=== PATIENT | male | born 1965 | race Caucasian/White ===

== ENCOUNTER → 2022-09-02 | Outpatient (REF) | payer OTHER ==
[2022-09-02 16:40] LABS: HEMATOCRIT 50.6 % (42.0-52.0); HEMOGLOBIN 16.4 g/dl (13.5-17.5); MEAN CORPUSCULAR HEMOGLOBIN 30.4 pg (27.0-33.0); MEAN CORPUSCULAR HGB CONC 32.4 g/dl (32.0-36.5); MEAN CORPUSCULAR VOLUME 93.9 fl (80.0-96.0); PLATELET COUNT, AUTOMATED 342 10^3/uL (150-450); RED BLOOD COUNT 5.39 10^6/uL (4.30-6.10); WHITE BLOOD COUNT 5.5 10^3/uL (4.0-10.0)
[2022-09-02 17:07] LABS: CREATININE, URINE 43.6 MG/DL; MAU/CREAT RATIO 38.9 MCG/MG (0.0-30.0)
[2022-09-02 17:11] LABS: ALKALINE PHOSPHATASE 105 U/L (46-116); ALT/SGPT 45 U/L (7.0-40); AST/SGOT 28 U/L (<34); BILIRUBIN,TOTAL 0.6 MG/DL (0.3-1.2); BLOOD UREA NITROGEN 12 MG/DL (9-23); CALCIUM LEVEL 9.3 MG/DL (8.5-10.1); CARBON DIOXIDE LEVEL 30 MMOL/L (20-31); CHLORIDE LEVEL 108 MMOL/L (98-107); CHOLESTEROL LEVEL 101 MG/DL (<200); CREATININE FOR GFR 0.79 MG/DL (0.70-1.30); GLOMERULAR FILTRATION RATE > 60.0 (>56); GLUCOSE, FASTING 59 MG/DL (60-100); HDL CHOLESTEROL 29.7 MG/DL (>40); LDL CHOLESTEROL 57.5 MG/DL (<100); NON-HDL-C 71 MG/DL; POTASSIUM SERUM 5.3 MMOL/L (3.5-5.1); SODIUM LEVEL 144 MMOL/L (136-145); THYROID STIMULATING HORMONE 1.081 uIU/ML (0.55-4.78); TOTAL PROTEIN 7.1 G/DL (5.7-8.2); TRIGLYCERIDES LEVEL 69 MG/DL (<150)
[2022-09-02 17:12] LABS: FREE T4 1.49 NG/DL (0.89-1.76); TESTOSTERONE 341 NG/DL (241-827)
[2022-09-02 17:37] LABS: HIV 1&2 SCREEN CENTAUR NEGATIVE (NEGATIVE)
== END ==
LOC: M LAB REF 16:18
PROVIDERS: ATTEND Physician Assistant
DX: Z11.4 Encounter for screening for human immunodeficiency virus [HIV] (principal); F52.21 Male erectile disorder; E03.9 Hypothyroidism, unspecified; E11.9 Type 2 diabetes mellitus without complications; E78.00 Pure hypercholesterolemia, unspecified; Z11.59 Encounter for screening for other viral diseases

== ENCOUNTER → 2022-10-05 | Outpatient (REF) | payer OTHER | LOC: M LAB REF 16:20 | PROVIDERS: ATTEND Physician Assistant | DX: E87.5 Hyperkalemia (principal) ==

== ENCOUNTER → 2023-02-17 | Outpatient (REF) | payer OTHER ==
[2023-02-17 17:06] LABS: BLOOD UREA NITROGEN 14 MG/DL (9-23); CALCIUM LEVEL 9.1 MG/DL (8.5-10.1); CARBON DIOXIDE LEVEL 27 MMOL/L (20-31); CHLORIDE LEVEL 103 MMOL/L (98-107); CREATININE FOR GFR 0.71 MG/DL (0.70-1.30); GLOMERULAR FILTRATION RATE > 60.0 (>56); GLUCOSE, FASTING 106 MG/DL (60-100); POTASSIUM SERUM 4.7 MMOL/L (3.5-5.1); SODIUM LEVEL 140 MMOL/L (136-145)
[2023-02-17 18:43] LABS: HEMOGLOBIN A1c 7.4 % (4.0-6.0)
== END ==
LOC: M LAB REF 16:18
PROVIDERS: ATTEND Physician Assistant
DX: E11.9 Type 2 diabetes mellitus without complications (principal); I10 Essential (primary) hypertension

== ENCOUNTER → 2023-05-15 | Outpatient (CLI) | payer MEDICAID ==
[~2023-05-15] MED LIST: LEVO1TAB40 PO; NEBU1EAC78 MC; PRED20TA PO
[2023-05-15 13:06] LABS: BLOOD UREA NITROGEN 18 MG/DL (9-23); CALCIUM LEVEL 9.3 MG/DL (8.5-10.1); CARBON DIOXIDE LEVEL 30 MMOL/L (20-31); CHLORIDE LEVEL 101 MMOL/L (98-107); CHOLESTEROL LEVEL 112 MG/DL (<200); CHOLESTEROL RISK RATIO 3.38 (<5); CREATININE FOR GFR 0.79 MG/DL (0.70-1.30); GLOMERULAR FILTRATION RATE > 60.0 (>56); GLUCOSE, FASTING 170 MG/DL (60-100); HDL CHOLESTEROL 33.1 MG/DL (>40); LDL CHOLESTEROL 56.9 MG/DL (<100); NON-HDL-C 78.9 MG/DL; POTASSIUM SERUM 4.3 MMOL/L (3.5-5.1); SODIUM LEVEL 138 MMOL/L (136-145); THYROID STIMULATING HORMONE 2.314 uIU/ML (0.55-4.78); TRIGLYCERIDES LEVEL 110 MG/DL (<150)
== END ==
LOC: M WUC 08:51
PROVIDERS: ATTEND Physician Assistant
DX: E03.9 Hypothyroidism, unspecified (principal); E11.9 Type 2 diabetes mellitus without complications

== ENCOUNTER → 2023-09-05 | Outpatient (REF) | payer OTHER ==
[2023-09-05 16:57] LABS: CREATININE, URINE 39.5 MG/DL; MAU/CREAT RATIO 12.6 MCG/MG (0.0-30.0)
== END ==
LOC: M LAB REF 16:03
PROVIDERS: ATTEND Physician Assistant
DX: E11.9 Type 2 diabetes mellitus without complications (principal)

== ENCOUNTER → 2023-10-16 | Outpatient (CLI) | payer OTHER | LOC: M CARPUL 09:43 | PROVIDERS: ATTEND Physician Assistant | DX: R06.2 Wheezing (principal); R05.3 Chronic cough; F17.211 Nicotine dependence, cigarettes, in remission ==

== ENCOUNTER 2023-11-04 12:54 | Inpatient (IN) | payer OTHER ==
[~2023-11-04] VITALS: Ht 162.6 cm; Wt 82.9 kg
[2023-11-04] VITALS (16 sets, daily range): BP systolic 78–108; BP diastolic 50–64; TEMP 96.4–98.1; O2SAT 86–96
[2023-11-04 14:02] LABS: BASO % 0.2 % (0.0-1.0); HEMATOCRIT 45.8 % (42.0-52.0); HEMOGLOBIN 15.6 g/dl (13.5-17.5); LYMPH # 0.8 10^3/uL (1.5-5.0); LYMPH % 4.2 % (24.0-44.0); MEAN CORPUSCULAR HEMOGLOBIN 30.7 pg (27.0-33.0); MEAN CORPUSCULAR HGB CONC 34.1 g/dl (32.0-36.5); MEAN CORPUSCULAR VOLUME 90.2 fl (80.0-96.0); MONO # 2.5 10^3/uL (0.0-0.8); MONO % 13.6 % (2.0-8.0); NEUTROPHILS # 15.1 10^3/uL (1.5-8.5); PLATELET COUNT, AUTOMATED 339 10^3/uL (150-450); RED BLOOD COUNT 5.08 10^6/uL (4.30-6.10); WHITE BLOOD COUNT 18.6 10^3/uL (4.0-10.0)
[2023-11-04] MEDS: NS 1,000 ML IV ONE ×4 (14:02→18:10)
[2023-11-04] MEDS: ONDANSETRON 4MG 2ML VIAL IV ONE (14:02)
[2023-11-04] MEDS: KETOROLAC 30 MG/ML 1ML VIAL IV ONE (14:02)
[2023-11-04] MEDS ORDERED: SEMA1PEN2 SC (14:23)
[2023-11-04] MEDS ORDERED: FARX1TAB3 PO (14:23)
[2023-11-04] MEDS ORDERED: LEVO150T7 PO (14:23)
[2023-11-04] MEDS ORDERED: METO1TAB32 PO (14:23)
[2023-11-04] MEDS ORDERED: ATOR80TA59 PO (14:23)
[2023-11-04] MEDS ORDERED: GLIP10TA18 PO (14:23)
[2023-11-04] MEDS ORDERED: CETI-24 PO (14:23)
[2023-11-04] MEDS ORDERED: ERGO500029 PO (14:23)
[2023-11-04] MEDS ORDERED: NOXI1TAB PO (14:23)
[2023-11-04] MEDS ORDERED: ASPI-226 PO (14:23)
[2023-11-04] MEDS ORDERED: LISI2.5T9 PO (14:23)
[2023-11-04] MEDS ORDERED: METF-415 PO (14:23)
[2023-11-04] MEDS ORDERED: SILD50TA2 PO (14:26)
[2023-11-04] MEDS ORDERED: TAMS1CAP17 PO (14:26)
[2023-11-04 14:31] LABS: ALBUMIN 3.3 G/DL (3.2-5.2); ALKALINE PHOSPHATASE 107 U/L (46-116); ALT/SGPT 23 U/L (7.0-40); AST/SGOT 14 U/L (<34); BILIRUBIN,TOTAL 1.5 MG/DL (0.3-1.2); BLOOD UREA NITROGEN 29 MG/DL (9-23); CALCIUM LEVEL 9.3 MG/DL (8.5-10.1); CARBON DIOXIDE LEVEL 20 MMOL/L (20-31); CHLORIDE LEVEL 99 MMOL/L (98-107); CREATININE FOR GFR 1.08 MG/DL (0.70-1.30); GLOMERULAR FILTRATION RATE > 60.0 (>56); GLUCOSE, FASTING 165 MG/DL (60-100); POTASSIUM SERUM 3.8 MMOL/L (3.5-5.1); SODIUM LEVEL 134 MMOL/L (136-145)
[2023-11-04] MEDS ORDERED: cefTRIAXone SOD 1 GM in D5W MINI-BAG PLUS 50 ML IV ONE ×2 (15:10→15:30)
[2023-11-04] MEDS ORDERED: ACETAMINOPHEN TAB 650MG DOSE (2X325MG) PO PRN (15:20)
[2023-11-04] MEDS ORDERED: ONDANSETRON 4MG 2ML VIAL IV PRN (15:25)
[2023-11-04] MEDS: AZITHROMYCIN INJ 500 MG, VIAL MATE ADAPTER 1 EACH in NS 250 ML IV ONE (15:26)
[2023-11-04] MEDS: ACETAMINOPHEN 500 MG TAB PO ONE (15:27)
[2023-11-04] MEDS ORDERED: AZEL1SPR3 NARES (15:47)
[2023-11-04] MEDS ORDERED: LORA-1041 PO (15:47)
[2023-11-04] MEDS ORDERED: VITA200048 PO (15:47)
[2023-11-04] MEDS ORDERED: ALBU8.5H INH (15:47)
[2023-11-04] MEDS ORDERED: LEVALBUTEROL 1.25MG 0.5ML CONCENTRATE NEB INH PRN (15:50)
[2023-11-04] MEDS ORDERED: HOME MED LIST COMPLETE! XX SCH (15:50)
[2023-11-04] MEDS ORDERED: IPRATROPIUM 0.02% SOLN 0.5MG 2.5ML NEB INH PRN (15:50)
[2023-11-04 15:56] LABS: PROCALCITONIN 5.12 ng/ml
[2023-11-04] MEDS ORDERED: GLUCOSE 4GM CHEW TABLET PO PRN (16:00)
[2023-11-04] MEDS ORDERED: GLUCAGON INJ 1MG VIAL SC PRN (16:00)
[2023-11-04] MEDS ORDERED: DEXTROSE 50% 50ML SYRINGE IV PRN (16:00)
[2023-11-04] MEDS: CETIRIZINE (ZyrTEC) 10 MG TAB PO ONE (16:02)
[2023-11-04] MEDS: guaiFENesin ER TABLET 600 MG TAB PO ONE (16:02)
[2023-11-04] MEDS: MONTELUKAST 10 MG TAB PO ONE (16:02)
[2023-11-04 16:41] LABS: HEMOGLOBIN A1c 6.2 % (4.0-6.0)
[2023-11-04] MEDS ORDERED: LORazepam 2 MG TAB PO PRN (16:45)
[2023-11-04] MEDS: MIDODRINE 5 MG TAB PO ONE (16:59)
[2023-11-04] MEDS: cefTRIAXone SOD 2 GM in D5W MINI-BAG PLUS 50 ML IV ONE (17:01)
[2023-11-04] MEDS: methylPREDNISolone 125MG 2ML VIAL IV ONE (17:06)
[2023-11-04] MEDS: ENOXAPARIN 40MG/0.4ML SYRINGE (J1650 PER 10MG) SC ONE (17:20)
[2023-11-04] MEDS: THIAMINE 100 MG TAB PO SCH (17:20)
[2023-11-04] MEDS ORDERED: NOREPINEPHRINE 4MG IN D5 250ML 4 MG in IV 1 EA IV SCH (17:35)
[2023-11-04] MEDS: PIPERACILLIN/TAZOBACTAM SOD 4.5 GM in D5W MINI-BAG PLUS 50 ML IV SCH (17:53)
[2023-11-04] MEDS: HYDROCORTISONE 100MG/2ML VIAL IV ONE (17:58)
[2023-11-04] MEDS ORDERED: HYDROCORTISONE 100MG/2ML VIAL IV SCH (18:00)
[2023-11-04] MEDS: INSULIN LISPRO (NovoLOG) PER UNIT SC SCH ×2 (18:44→20:02)
[2023-11-04] MEDS: IPRATROPIUM 0.02% SOLN 0.5MG 2.5ML NEB INH SCH (19:12)
[2023-11-04] MEDS: LEVALBUTEROL 1.25MG 0.5ML CONCENTRATE NEB INH SCH (19:12)
[2023-11-04] MEDS: NS 1,000 ML IV SCH (19:20)
[2023-11-04] MEDS: LEVEMIR (INSULIN DETEMIR) 1 UNITS/0.01ML SC SCH (20:08)
[2023-11-04] MEDS: OXYMETAZOLINE 0.05% NASAL SPRAY (AFRIN) SCH (20:08)
[2023-11-04] MEDS: guaiFENesin ER TABLET 600 MG TAB PO SCH (20:08)
[2023-11-05] VITALS (30 sets, daily range): BP systolic 104–133; BP diastolic 54–74; TEMP 97–99.4; O2SAT 88–95
[2023-11-05 04:59] LABS: HEMATOCRIT 42.6 % (42.0-52.0); HEMOGLOBIN 13.8 g/dl (13.5-17.5); MEAN CORPUSCULAR HEMOGLOBIN 30.2 pg (27.0-33.0); MEAN CORPUSCULAR HGB CONC 32.4 g/dl (32.0-36.5); MEAN CORPUSCULAR VOLUME 93.2 fl (80.0-96.0); PLATELET COUNT, AUTOMATED 330 10^3/uL (150-450); RED BLOOD COUNT 4.57 10^6/uL (4.30-6.10)
[2023-11-05 05:25] LABS: BLOOD UREA NITROGEN 25 MG/DL (9-23); CALCIUM LEVEL 8.5 MG/DL (8.5-10.1); CARBON DIOXIDE LEVEL 23 MMOL/L (20-31); CHLORIDE LEVEL 108 MMOL/L (98-107); CHOLESTEROL LEVEL 59 MG/DL (<200); CHOLESTEROL RISK RATIO 2.14 (<5); CREATININE FOR GFR 0.79 MG/DL (0.70-1.30); GLOMERULAR FILTRATION RATE > 60.0 (>56); GLUCOSE, FASTING 164 MG/DL (60-100); HDL CHOLESTEROL 27.5 MG/DL (>40); LDL CHOLESTEROL 23.5 MG/DL (<100); NON-HDL-C 31.5 MG/DL; POTASSIUM SERUM 4.2 MMOL/L (3.5-5.1); SODIUM LEVEL 139 MMOL/L (136-145); TRIGLYCERIDES LEVEL 40 MG/DL (<150)
[2023-11-05 05:26] LABS: THYROID STIMULATING HORMONE 0.235 uIU/ML (0.55-4.78)
[2023-11-05 05:38] LABS: LYMPHOCYTES 3 % (16-44); MONOCYTES 8 % (0-5); NEUTROPHILS 84 % (28-66)
[2023-11-05 05:39] LABS: PLATELET ESTIMATE NORMAL (NORMAL)
[2023-11-05] MEDS: methylPREDNISolone 40MG 1ML VIAL IV SCH (05:45)
[2023-11-05] MEDS: LEVOTHYROXINE 150MCG TABLET (0.15MG) PO SCH (05:45)
[2023-11-05] MEDS: MIDODRINE 5 MG TAB PO SCH (08:00)
[2023-11-05] MEDS: MONTELUKAST 10 MG TAB PO SCH (08:41)
[2023-11-05] MEDS: AZITHROMYCIN 250MG TABLET PO SCH (08:41)
[2023-11-05] MEDS: ASPIRIN 81MG ENTERIC TABLET PO SCH (08:41)
[2023-11-05] MEDS: DAPAGLIFLOZIN PROPANEDIOL 10MG TABLET (FARXIGA) PO SCH (08:41)
[2023-11-05] MEDS: ATORVASTATIN 20 MG TAB PO SCH (08:41)
[2023-11-05] MEDS: CETIRIZINE (ZyrTEC) 10 MG TAB PO SCH (08:42)
[2023-11-05] MEDS: MULTIVITAMINS/MINERALS THERAP 1 TAB PO SCH (08:42)
[2023-11-05] MEDS: LORATADINE 10 MG TAB PO SCH (08:42)
[2023-11-05] MEDS: FOLIC ACID 1MG TAB PO SCH (08:42)
[2023-11-05] MEDS ORDERED: TAMSULOSIN 0.4 MG CAP PO SCH (09:00)
[2023-11-05] MEDS ORDERED: METOPROLOL SUCC *XL* 25MG TAB (TopROL *XL*) PO SCH (09:00)
[2023-11-05] MEDS: ACETAMINOPHEN TAB 650MG DOSE (2X325MG) PO PRN (13:54)
[2023-11-05] MEDS ORDERED: cefTRIAXone SOD 2 GM in D5W MINI-BAG PLUS 50 ML IV SCH (15:00)
[2023-11-05] MEDS: ENOXAPARIN 40MG/0.4ML SYRINGE (J1650 PER 10MG) SC SCH (21:12)
[2023-11-06] VITALS (29 sets, daily range): BP systolic 120–136; BP diastolic 64–71; TEMP 97.2–98.7; O2SAT 87–96
[2023-11-06] MEDS: PANTOPRAZOLE 40MG VIAL IV ONE (01:11)
[2023-11-06 05:49] LABS: BASO % 0.2 % (0.0-1.0); EOS % 0.1 % (0.0-3.0); HEMATOCRIT 40.4 % (42.0-52.0); HEMOGLOBIN 13.4 g/dl (13.5-17.5); LYMPH # 1.1 10^3/uL (1.5-5.0); LYMPH % 6.6 % (24.0-44.0); MEAN CORPUSCULAR HEMOGLOBIN 30.2 pg (27.0-33.0); MEAN CORPUSCULAR HGB CONC 33.2 g/dl (32.0-36.5); MONO # 1.2 10^3/uL (0.0-0.8); MONO % 6.9 % (2.0-8.0); NEUTROPHILS # 14.7 10^3/uL (1.5-8.5); NEUTROPHILS % 85.4 % (36.0-66.0); PLATELET COUNT, AUTOMATED 388 10^3/uL (150-450); RED BLOOD COUNT 4.44 10^6/uL (4.30-6.10); WHITE BLOOD COUNT 17.2 10^3/uL (4.0-10.0)
[2023-11-06 06:20] LABS: BLOOD UREA NITROGEN 29 MG/DL (9-23); CALCIUM LEVEL 8.8 MG/DL (8.5-10.1); CARBON DIOXIDE LEVEL 22 MMOL/L (20-31); CHLORIDE LEVEL 109 MMOL/L (98-107); CREATININE FOR GFR 0.81 MG/DL (0.70-1.30); GLOMERULAR FILTRATION RATE > 60.0 (>56); GLUCOSE, FASTING 132 MG/DL (60-100); POTASSIUM SERUM 4.2 MMOL/L (3.5-5.1); SODIUM LEVEL 141 MMOL/L (136-145)
[2023-11-06] MEDS: DEXTROMETHORPHAN 60MG/10ML SUSP 90ML BTL(DELSYM) PO PRN (06:36)
[2023-11-06] MEDS ORDERED: predniSONE 20 MG TAB PO SCH (09:00)
[2023-11-06] MEDS: metOLazone 2.5 MG TAB PO ONE (14:20)
[2023-11-06] MEDS: FUROSEMIDE 40MG/4ML VIAL IV ONE (14:55)
[2023-11-06] MEDS: traZODone 25MG PER 1/2 TABLET PO PRN (23:43)
[2023-11-07] VITALS (26 sets, daily range): BP systolic 119–138; BP diastolic 59–80; TEMP 96.4–97.5; O2SAT 88–98
[2023-11-07 06:51] LABS: BASO # 0.1 10^3/uL (0.0-0.2); BASO % 0.4 % (0.0-1.0); EOS % 0.2 % (0.0-3.0); HEMATOCRIT 43.1 % (42.0-52.0); HEMOGLOBIN 14.2 g/dl (13.5-17.5); LYMPH # 2.5 10^3/uL (1.5-5.0); LYMPH % 21.8 % (24.0-44.0); MEAN CORPUSCULAR HGB CONC 32.9 g/dl (32.0-36.5); MEAN CORPUSCULAR VOLUME 91.1 fl (80.0-96.0); MONO # 0.9 10^3/uL (0.0-0.8); MONO % 7.8 % (2.0-8.0); NEUTROPHILS # 7.8 10^3/uL (1.5-8.5); NEUTROPHILS % 68.7 % (36.0-66.0); PLATELET COUNT, AUTOMATED 444 10^3/uL (150-450); RED BLOOD COUNT 4.73 10^6/uL (4.30-6.10); WHITE BLOOD COUNT 11.4 10^3/uL (4.0-10.0)
[2023-11-07 07:16] LABS: BLOOD UREA NITROGEN 29 MG/DL (9-23); CALCIUM LEVEL 9.3 MG/DL (8.5-10.1); CARBON DIOXIDE LEVEL 31 MMOL/L (20-31); CHLORIDE LEVEL 101 MMOL/L (98-107); CREATININE FOR GFR 1.07 MG/DL (0.70-1.30); FREE T4 1.12 NG/DL (0.89-1.76); GLOMERULAR FILTRATION RATE > 60.0 (>56); GLUCOSE, FASTING 163 MG/DL (60-100); POTASSIUM SERUM 3.8 MMOL/L (3.5-5.1); SODIUM LEVEL 140 MMOL/L (136-145); THYROID STIMULATING HORMONE 0.832 uIU/ML (0.55-4.78)
[2023-11-07 07:17] LABS: FREE T3 2.6 PG/ML (2.3-4.2)
[2023-11-07] MEDS: predniSONE 20 MG TAB PO SCH (09:02)
[2023-11-07 10:00] LABS: PROCALCITONIN 3.35 ng/ml
[2023-11-07] MEDS: LevoFLOXacin 750 MG TABLET PO SCH (13:19)
[2023-11-08] VITALS (38 sets, daily range): BP systolic 125–139; BP diastolic 76–87; TEMP 96.4–98.2; O2SAT 87–98
[2023-11-08 06:24] LABS: BASO # 0.1 10^3/uL (0.0-0.2); BASO % 0.5 % (0.0-1.0); EOS # 0.1 10^3/uL (0.0-0.5); EOS % 0.6 % (0.0-3.0); HEMATOCRIT 47.9 % (42.0-52.0); HEMOGLOBIN 16.2 g/dl (13.5-17.5); LYMPH # 2.7 10^3/uL (1.5-5.0); LYMPH % 27.1 % (24.0-44.0); MEAN CORPUSCULAR HEMOGLOBIN 30.7 pg (27.0-33.0); MEAN CORPUSCULAR HGB CONC 33.8 g/dl (32.0-36.5); MEAN CORPUSCULAR VOLUME 90.9 fl (80.0-96.0); MONO # 0.9 10^3/uL (0.0-0.8); MONO % 9.1 % (2.0-8.0); NEUTROPHILS # 6.1 10^3/uL (1.5-8.5); NEUTROPHILS % 60.2 % (36.0-66.0); PLATELET COUNT, AUTOMATED 514 10^3/uL (150-450); RED BLOOD COUNT 5.27 10^6/uL (4.30-6.10); WHITE BLOOD COUNT 10.1 10^3/uL (4.0-10.0)
[2023-11-08 06:36] LABS: BLOOD UREA NITROGEN 26 MG/DL (9-23); CARBON DIOXIDE LEVEL 32 MMOL/L (20-31); CHLORIDE LEVEL 98 MMOL/L (98-107); CREATININE FOR GFR 0.86 MG/DL (0.70-1.30); GLOMERULAR FILTRATION RATE > 60.0 (>56); GLUCOSE, FASTING 149 MG/DL (60-100); POTASSIUM SERUM 4.3 MMOL/L (3.5-5.1); SODIUM LEVEL 139 MMOL/L (136-145)
[2023-11-09] VITALS (16 sets, daily range): BP systolic 133–145; BP diastolic 71–82; TEMP 96.8–98; O2SAT 89–98
[2023-11-09 06:09] LABS: BASO # 0.1 10^3/uL (0.0-0.2); BASO % 0.5 % (0.0-1.0); EOS # 0.4 10^3/uL (0.0-0.5); HEMATOCRIT 47.3 % (42.0-52.0); HEMOGLOBIN 15.8 g/dl (13.5-17.5); LYMPH # 2.9 10^3/uL (1.5-5.0); LYMPH % 22.7 % (24.0-44.0); MEAN CORPUSCULAR HEMOGLOBIN 30.4 pg (27.0-33.0); MEAN CORPUSCULAR HGB CONC 33.4 g/dl (32.0-36.5); MONO # 1.3 10^3/uL (0.0-0.8); MONO % 9.8 % (2.0-8.0); NEUTROPHILS # 7.9 10^3/uL (1.5-8.5); NEUTROPHILS % 61.5 % (36.0-66.0); PLATELET COUNT, AUTOMATED 456 10^3/uL (150-450); WHITE BLOOD COUNT 12.8 10^3/uL (4.0-10.0)
[2023-11-09 06:33] LABS: BLOOD UREA NITROGEN 28 MG/DL (9-23); CALCIUM LEVEL 9.6 MG/DL (8.5-10.1); CARBON DIOXIDE LEVEL 31 MMOL/L (20-31); CHLORIDE LEVEL 100 MMOL/L (98-107); CREATININE FOR GFR 0.76 MG/DL (0.70-1.30); GLOMERULAR FILTRATION RATE > 60.0 (>56); GLUCOSE, FASTING 129 MG/DL (60-100); POTASSIUM SERUM 4.3 MMOL/L (3.5-5.1); SODIUM LEVEL 138 MMOL/L (136-145)
[2023-11-09] MEDS ORDERED: LEVO1TAB40 PO (12:52)
[2023-11-09] MEDS ORDERED: PRED20TA PO (12:52)
[2023-11-09] MEDS ORDERED: MONT10TA97 PO (12:52)
[2023-11-09] MEDS ORDERED: FOLI1TAB11 PO (12:52)
[2023-11-09] MEDS ORDERED: Multivitamins PO (12:52)
[2023-11-09 15:09] LABS: BODY FLUID CULTURE Not indicated. (.); LEGIONELLA ANTIGEN URINE Negative (Negative); ORGANISM ID Not indicated. (.); SPECIMEN SOURCE Urine (.); URINE STREP PNEUMONIAE ANTIGEN Negative (Negative)
== END 2023-11-09 15:33 | disposition home or self-care (01) | DRG 720 ==
LOC: M ED 13:52 → M ED INP 15:17 → M MSPAV 16:32 → M PCU 18:01
PROVIDERS: ADMIT General Practice; ATTEND Hospitalist
DX: A41.9 Sepsis, unspecified organism (principal); I95.9 Hypotension, unspecified; J18.9 Pneumonia, unspecified organism; E87.1 Hypo-osmolality and hyponatremia; J45.901 Unspecified asthma with (acute) exacerbation; B34.8 Other viral infections of unspecified site; E03.9 Hypothyroidism, unspecified; E55.9 Vitamin D deficiency, unspecified; E78.5 Hyperlipidemia, unspecified; I10 Essential (primary) hypertension; I25.10 Atherosclerotic heart disease of native coronary artery without angina pectoris; N40.0 Benign prostatic hyperplasia without lower urinary tract symptoms; R62.7 Adult failure to thrive; I25.2 Old myocardial infarction; E11.9 Type 2 diabetes mellitus without complications; Z79.899 Other long term (current) drug therapy; Z79.82 Long term (current) use of aspirin; G47.33 Obstructive sleep apnea (adult) (pediatric); Z87.891 Personal history of nicotine dependence; Z95.2 Presence of prosthetic heart valve; F10.10 Alcohol abuse, uncomplicated; R65.20 Severe sepsis without septic shock

== ENCOUNTER → 2023-12-05 | Outpatient (CLI) | payer OTHER ==
[~2023-12-05] MED LIST changes: +ALBU8.5H INH; +ASPI-226 PO; +ATOR80TA59 PO; +AZEL1SPR3 NARES; +CETI-24 PO; +ERGO500029 PO; +FARX1TAB3 PO; +FOLI1TAB11 PO; +GLIP10TA18 PO; +LEVO150T7 PO; +LISI2.5T9 PO; +LORA-1041 PO; +METF-415 PO; +METHACHOLINE KIT (6 VIAL.NEB PREMIX) INH ONE; +METO1TAB32 PO; +MONT10TA97 PO; +Multivitamins PO; +NOXI1TAB PO; +SEMA1PEN2 SC; +SILD50TA2 PO; +TAMS1CAP17 PO; +VITA200048 PO
== END ==
LOC: M CARPUL 11:03
PROVIDERS: ATTEND Physician Assistant
DX: R05.9 Cough, unspecified (principal)
CPT/HCPCS: 94070; 95070; J7674

== ENCOUNTER → 2023-12-14 | Outpatient (CLI) | payer OTHER ==
[~2023-12-14] MED LIST changes: -METHACHOLINE KIT (6 VIAL.NEB PREMIX) INH ONE
== END ==
LOC: M PLAIMG 10:25
PROVIDERS: ATTEND Physician Assistant
DX: R94.2 Abnormal results of pulmonary function studies (principal)

== ENCOUNTER → 2024-03-19 | Outpatient (CLI) | payer OTHER | LOC: M SLEEP 20:00 | PROVIDERS: ATTEND Physician Assistant | DX: G47.33 Obstructive sleep apnea (adult) (pediatric) (principal) ==

== ENCOUNTER → 2024-04-05 | Outpatient (REF) | LOC: M LAB 11:26 | PROVIDERS: ATTEND Nurse Practitioner Adult Health | DX: Z02.89 Encounter for other administrative examinations (principal) ==

== ENCOUNTER 2024-05-07 14:28 | Emergency (ER) | payer OTHER ==
[~2024-05-07] VITALS: Ht 177.8 cm; Wt 82.0 kg
[2024-05-07] MEDS ORDERED: CEPH500C PO (18:41)
[2024-05-07] MEDS: CEPHALEXIN 500 MG CAP PO ONE (18:44)
[2024-05-07 18:50] VITALS: BP 138/80; TEMP 97.9; O2SAT 95
== END 2024-05-07 18:53 | disposition home or self-care (01) ==
LOC: M ED 14:28
DX: S80.812A Abrasion, left lower leg, initial encounter (principal); W50.4XXA Accidental scratch by another person, initial encounter; E11.9 Type 2 diabetes mellitus without complications; I10 Essential (primary) hypertension; I25.2 Old myocardial infarction; E78.5 Hyperlipidemia, unspecified; J45.909 Unspecified asthma, uncomplicated; K21.9 Gastro-esophageal reflux disease without esophagitis; N40.0 Benign prostatic hyperplasia without lower urinary tract symptoms; E03.9 Hypothyroidism, unspecified; Z87.442 Personal history of urinary calculi; Z91.040 Latex allergy status; Z79.52 Long term (current) use of systemic steroids; Z79.82 Long term (current) use of aspirin; Z79.02 Long term (current) use of antithrombotics/antiplatelets; Z79.4 Long term (current) use of insulin; Z79.899 Other long term (current) drug therapy; Y92.9 Unspecified place or not applicable; Y93.89 Activity, other specified; Y99.0 Civilian activity done for income or pay

== ENCOUNTER → 2024-06-20 | Outpatient (CLI) | payer OTHER ==
[~2024-06-20] MED LIST changes: +CEPH500C PO
== END ==
LOC: M SLEEP 20:00
PROVIDERS: ATTEND Physician Assistant
DX: G47.33 Obstructive sleep apnea (adult) (pediatric) (principal)

== ENCOUNTER 2024-07-11 15:16 | Emergency (ER) | payer OTHER ==
[~2024-07-11] VITALS: Ht 163.8 cm; Wt 86.5 kg
[2024-07-11 15:24] VITALS: BP 123/62; TEMP 98.6; O2SAT 96
[2024-07-11] MEDS: FLUORESCEIN OPHTH 1MG STRIP OD ONE (17:15)
[2024-07-11] MEDS: TETRACAINE 0.5% OPHTH SOLN 4ML OD ONE (17:15)
[2024-07-11] MEDS ORDERED: ERYT5OIN25 OD (17:41)
== END 2024-07-11 17:46 | disposition home or self-care (01) ==
LOC: M ED 15:16
DX: S05.01XA Injury of conjunctiva and corneal abrasion without foreign body, right eye, initial encounter (principal); H11.31 Conjunctival hemorrhage, right eye; X58.XXXA Exposure to other specified factors, initial encounter; E11.9 Type 2 diabetes mellitus without complications; I10 Essential (primary) hypertension; I25.2 Old myocardial infarction; E03.9 Hypothyroidism, unspecified; E78.5 Hyperlipidemia, unspecified; K21.9 Gastro-esophageal reflux disease without esophagitis; Z88.2 Allergy status to sulfonamides; Z91.040 Latex allergy status

== ENCOUNTER → 2024-09-05 | Outpatient (REF) | payer OTHER ==
[~2024-09-05] MED LIST changes: +ERYT5OIN25 OD
[2024-09-05 17:33] LABS: CREATININE, URINE 74.7 MG/DL; MAU/CREAT RATIO 5.3 MCG/MG (0.0-30.0)
== END ==
LOC: M LAB REF 16:34
PROVIDERS: ATTEND Nurse Practitioner Family
DX: E11.9 Type 2 diabetes mellitus without complications (principal)

== ENCOUNTER → 2025-03-11 | Outpatient (REF) | payer OTHER ==
[~2025-03-11] MED LIST changes: +GLIP-320 PO; -GLIP10TA18 PO
[2025-03-11 18:21] LABS: BACTERIA, URINE AUTO NEGATIVE (NEGATIVE); RBC, URINE AUTO 0 /HPF (0-3); SQUAMOUS EPITHELIAL CELL UR AU 0 /HPF (0-6); WBC, URINE AUTO 0 /HPF (0-3)
== END ==
LOC: M LAB REF 17:23
PROVIDERS: ATTEND Nurse Practitioner Family
DX: N53.13 Anejaculatory orgasm (principal)